=== PATIENT | female | born 1990 | race Caucasian/White ===

== ENCOUNTER 2016-12-03 12:42 | Emergency (ER) | payer OTHER ==
[~2016-12-03] VITALS: Wt 60.0 kg
[~2016-12-03 12:42] MED LIST: BEN25 PO; HC1C30 TOP; HYDR28.424 TP; NAPR-260 PO; PRED20TA PO
[2016-12-03] MEDS ORDERED: FLUC150T41 PO (14:38)
[2016-12-03] MEDS ORDERED: DOXY-220 PO (14:38)
[2016-12-03 14:56] LABS: URINE BLOOD (Dip) POC Negative (NEGATIVE)
--- NOTE | 2016-12-03 15:11 | ERD ---
ER Documentation Chief Complaint Date/Time DATE: 12/03/16 TIME: 15:09 Chief Complaint vaginal area rash for 3 days. no drainage noted. mild vaginal discharge. HPI 26-year-old female presents with vaginal itching and discharge for last 3 days. Patient had recent unprotected sex after long period of abstinence. She has additional complaint of a rash on bilateral thighs. There are possibly pimples that she is picking. There is no history of fevers, significant abdominal pain , vomiting, urinary complaints. Patient is requesting testing for STDs. Last menstrual period approximately 2 weeks ago ROS All systems reviewed and are negative except as per history of present illness. Medications Home Meds Active Scripts Doxycycline Monohydrate* (Doxycycline Monohydrate*) 100 Mg Tablet, 100 MG PO BID for 10 Days, TAB Prov:MONE WEBSTER MD 12/03/16 Fluconazole* (Fluconazole*) 150 Mg Tablet, 150 MG PO DAILY for 1 Day, #2 TAB Repeat 1 after antibiotics for persistent symptoms. Prov:MONE WEBSTER MD 12/03/16 Hydrocortisone* Topical (Hydrocortisone* Topical) 1%-28.35 Gm Cream..g., 1 APPLIC TOP BID, #1 TUB Prov:MILTON HUANG PA-C 05/31/16 Prednisone* (Prednisone*) 20 Mg Tab, 40 MG PO DAILY for 4 Days, TAB Prov:MILTON HUANG PA-C 05/31/16 Diphenhydramine Hcl* (Benadryl*) 25 Mg Cap, 25 MG PO Q6, #30 CAP Prov:MILTON HUANG PA-C 05/31/16 Hydrocortisone/Aloe Vera (HYDROCORTISONE PLUS 1% CREAM) 28.4 Gm Cream..g., 28.4 GM TP BID, #1 Apply lightly to affected area BID. Prov:MILTON HUANG PA-C 07/17/15 Naproxen* (Naprosyn*) 500 Mg Tablet, 500 MG PO BID Y for PAIN AND/OR INFLAMMATION, #10 TAB Prov:MAUREEN CORONA MD 04/14/15 Allergies Allergies: Coded Allergies: No Known Allergy (Unverified , 07/17/15) PMhx/Soc History of Surgery: No Anesthesia Reaction: No Hx Neurological Disorder: No Hx Respiratory Disorders: No Hx Cardiac Disorders: No Hx Psychiatric Problems: No Hx Miscellaneous Medical Probl: No Hx Alcohol Use: No Hx Substance Use: No Hx Tobacco Use: No Physical Exam Vitals Vital Signs Date Time Temp Pulse Resp B/P Pulse Ox O2 Delivery O2 Flow Rate FiO2 12/03/16 12:46 99.0 74 20 117/61 99 Physical Exam Const: [] Alert, [id number] per Head: Atraumatic Eyes: Normal Conjunctiva ENT: Normal External Ears, Nose and Mouth. Neck: Full range of motion..~ No meningismus. Resp: Clear to auscultation bilaterally Cardio: Regular rate and rhythm, no murmurs Abd: Soft, non tender, non distended. Normal bowel sounds. Vaginal exam with supervisor metal cans shows whitish thick discharge. No vesicles no rashes. No CMT Skin: No petechiae. Scattered erythematous papules associated with hair follicles on the anterior thighs. Back: No midline or flank tenderness Ext: No cyanosis, or edema Neur: Awake and alert Psych: Normal Mood and Affect Results 24 hrs Laboratory Tests Test 12/03/16 14:59 Bedside Urine Blood Negative Bedside Urine Glucose (UA) Negative Bedside Urine Ketones (LAB) Negative Bedside Urine Leukocyte Esterase (L 1+ Bedside Urine Nitrite (LAB) Negative Bedside Urine Protein (LAB) Trace Bedside Urine pH (LAB) 6.5 Procedures/MDM Patient has signs and symptoms of vaginitis, possible monilia and folliculitis of her thighs. She will be treated empirically with Diflucan, doxycycline. Urine was sent for gonorrhea chlamydia. HCG is negative. Urine shows 1+ leukocytes. Patient will be discharged home instructions to follow-up with primary care doctor, otherwise she will be called with abnormal STD results. She should return for fevers, vomiting, abdominal pain, new or worsening symptoms. Departure Diagnosis: Primary Impression: Folliculitis Additional Impression: Vaginitis Chronicity: acute Qualified Code: N76.0 - Acute vaginitis Condition: Stable Patient Instructions: Folliculitis, Vaginitis, Lorenza Additional Instructions: You should be called with abnormal STD results. Recheck for new or worsening symptoms or primary care doctor per MONE WEBSTER MD Dec 03, 2016 15:11
[2016-12-03 15:19] VITALS: BP 128/68; PULSE 89; RESP 16; TEMP 98.2
== END 2016-12-03 15:20 | disposition home or self-care (01) ==
LOC: FTE 12:42
DX: L73.9 Follicular disorder, unspecified (principal); N76.0 Acute vaginitis
CPT/HCPCS: 81003; 87591; Z7502; 99284

== ENCOUNTER 2017-07-09 23:14 | Emergency (ER) | payer OTHER ==
[~2017-07-09] VITALS: Ht 162.6 cm; Wt 66.0 kg
[~2017-07-09 23:14] MED LIST changes: +DOXY-220 PO; +FLUC150T41 PO
[2017-07-09 23:20] VITALS: Ht 162.6 cm; Wt 66.0 kg
[2017-07-09] MEDS ORDERED: DOXY100T20 PO (23:58)
[2017-07-09] MEDS ORDERED: CLI30GEL TOP (23:58)
[2017-07-10] MEDS ORDERED: [UNRECOGNIZED DRUG - CODE] TP (00:01)
--- NOTE | 2017-07-10 00:11 | ERD ---
ER Documentation Chief Complaint Date/Time DATE: 07/10/17 TIME: 00:06 Chief Complaint c/o body rash x 1 year. HPI This is a 26-year-old female presents the emergency department today complaining a rash on her legs for the past year. States it is now spread to her chest and her arms. States that she has seen her primary care doctor in 3 dermatologists and she does not want to take antibiotics anymore. States that she also had a biopsy done and has also had STD testing done. States the antibiotics helped for short period of time but then the rash returns. Denies any fevers or chills. ROS All systems reviewed and are negative except as per history of present illness. Medications Home Meds Active Scripts Benzoyl Peroxide (Benzoyl Peroxide) 142 Gm Cleanser, 142 GM TP DAILY for 10 Days Prov:NISA PALACIOS PA-C 07/10/17 Doxycycline Hyclate* (Doxycycline Hyclate*) 100 Mg Tablet.dr, 100 MG PO BID for 30 Days, TAB Prov:NISA PALACIOS PA-C 07/09/17 Clindamycin* (Cleocin T* Topical) 1% - 30 Gm Gel, 1 APPLIC TOP BID, #1 BOTTLE Prov:NISA PALACIOS PA-C 07/09/17 Doxycycline Monohydrate* (Doxycycline Monohydrate*) 100 Mg Tablet, 100 MG PO BID for 10 Days, TAB Prov:MONE COLE MD 12/03/16 Fluconazole* (Fluconazole*) 150 Mg Tablet, 150 MG PO DAILY for 1 Day, #2 TAB Repeat 1 after antibiotics for persistent symptoms. Prov:MONE COLE MD 12/03/16 Hydrocortisone* Topical (Hydrocortisone* Topical) 1%-28.35 Gm Cream..g., 1 APPLIC TOP BID, #1 TUB Prov:MILTON HUANG PA-C 05/31/16 Prednisone* (Prednisone*) 20 Mg Tab, 40 MG PO DAILY for 4 Days, TAB Prov:MILTON HUANG PA-C 05/31/16 Diphenhydramine Hcl* (Benadryl*) 25 Mg Cap, 25 MG PO Q6, #30 CAP Prov:MILTON HUANG PA-C 05/31/16 Hydrocortisone/Aloe Vera (HYDROCORTISONE PLUS 1% CREAM) 28.4 Gm Cream..g., 28.4 GM TP BID, #1 Apply lightly to affected area BID. Prov:MILTON HUANG PA-C 07/17/15 Naproxen* (Naprosyn*) 500 Mg Tablet, 500 MG PO BID Y for PAIN AND/OR INFLAMMATION, #10 TAB Prov:MAUREEN CORONA MD 04/14/15 Allergies Allergies: Coded Allergies: No Known Allergy (Unverified , 07/17/15) PMhx/Soc Medical and Surgical Hx: pt denies Medical Hx, pt denies Surgical Hx History of Surgery: No Anesthesia Reaction: No Hx Neurological Disorder: No Hx Respiratory Disorders: No Hx Cardiac Disorders: No Hx Psychiatric Problems: No Hx Miscellaneous Medical Probl: No Hx Alcohol Use: No Hx Substance Use: No Hx Tobacco Use: No Smoking Status: Never smoker Physical Exam Vitals Vital Signs Date Time Temp Pulse Resp B/P Pulse Ox O2 Delivery O2 Flow Rate FiO2 07/09/17 23:20 97.1 91 18 133/81 98 Physical Exam Const: NAD Head: Atraumatic Eyes: Normal Conjunctiva ENT: Normal External Ears, Nose and Mouth. Neck: Full range of motion..~ No meningismus. Resp: Clear to auscultation bilaterally Cardio: Regular rate and rhythm, no murmurs Skin: Left tibia , bilateral arms and chest with evidence of small erythematous papules with some very tiny pustules. Back: No midline or flank tenderness Ext: No cyanosis, or edema Neur: Awake and alert Psych: Normal Mood and Affect Procedures/MDM This is a 26-year-old female who presents the emergency department today for a rash for the past year. Patient had been previously diagnosed with folliculitis. Patient signs and symptoms appear most consistent with folliculitis. She is afebrile and otherwise well-appearing. Low suspicion for meningitis, sepsis, cellulitis, deep space tracking infection. Patient has had a biopsy in the past that was negative and I have low suspicion for any autoimmune disorders. She has had negative sexually transmitted infection results. Patient had indicated that she did not want to take any more antibiotics because she thinks it is bad for her. She states "I want to know what is wrong with me". Patient was instructed that she does need to follow back up with her landing support specialist that she may need long-term antibiotics. Patient was given a prescription for Cleocin cream, doxycycline for a month as well as benzoyl peroxide. She was instructed to garbage pick up worker Hibiclens [id number]. Do not feel the patient requires further laboratory workup at this time. I explained to the patient that the ground crewman aircraft support with a specialist. Patient understood At this time the patient is stable for discharge and outpatient management. Patient should follow up with their PCP in the next 1-2 days. They may return to the emergency department sooner for any persistent or worsening of symptoms. Patient understood and agreed with the plan. Dr Cole has seen and evaluated the patient and is in agreement with the plan. Departure Diagnosis: Primary Impression: Rash and other nonspecific skin eruption Condition: Fair Patient Instructions: Folliculitis Referrals: MAGDALENA ARRIAGA MD,GRETTA ELIZONDO,CATIA RUFF,BENJI PARKER,BRIAN AG,GAETANO GOMEZ Additional Instructions: Call your primary care doctor TOMORROW for an appointment during the next 1-2 days.See the doctor sooner or return here if your condition worsens before your appointment time. Follow back up with your ground crewman aircraft support. Take all medications as prescribed crusher supervisor Hibiclens from pharmacy. Ask pharmacist if you are unable to find it over the counter. NISA PALACIOS PA-C Jul 10, 2017 00:11
== END 2017-07-10 00:19 | disposition home or self-care (01) ==
LOC: FTE 23:14
DX: R21 Rash and other nonspecific skin eruption (principal)
CPT/HCPCS: 99284